=== PATIENT | female | born 1980 | race Caucasian/White ===

== ENCOUNTER 2017-11-18 21:26 | Emergency (ER) | payer OTHER ==
[~2017-11-18] VITALS: Ht 160 cm; Wt 84.8 kg
[2017-11-18 21:42] VITALS: BP 135/87
[2017-11-18 21:51] LABS: ABSOLUTE BASOPHIL COUNT 0 /CUMM (0.0-0.2); ABSOLUTE EOSINOPHIL COUNT 0.2 /CUMM (0.0-0.7); ABSOLUTE GRANULOCYTE CT 3.6 /CUMM (1.4-6.5); ABSOLUTE LYMPH COUNT 2.7 /CUMM (1.2-3.4); ABSOLUTE MONOCYTE COUNT 0.6 /CUMM (0.10-0.60); BASOPHIL % 0.6 % (0.0-2.0); EOSINOPHIL % 2.2 % (0-5); GRANULOCYTE % 50.7 % (42.2-75.2); MEAN CORPUSCULAR HGB 29.9 PG (27.0-31.0); MEAN CORPUSCULAR HGB CONC 34.2 G/DL (33.0-37.0); MEAN CORPUSCULAR VOLUME 87.3 FL (81.0-99.0); MEAN PLATELET VOLUME 7.1 FL (7.4-10.4); PLATELET COUNT 297 /CUMM (130-400); RBC DISTRIBUTION WIDTH 15.3 % (11.5-14.5); RED BLOOD CELL CT 4.01 /CUMM (4.20-5.40); WHITE BLOOD CELL COUNT 7.1 /CUMM (4.8-10.8)
--- NOTE | 2017-11-18 23:02 | RADIOLOGY REPORT ---
EXAMINATION: XR CHEST CLINICAL INFORMATION: Chest pain COMPARISON: CT 05/23/2009 TECHNIQUE: 2 views of the chest were obtained. FINDINGS: The lungs are well expanded. There is no focal consolidation, edema, or effusion. No pneumothorax. The cardiomediastinal silhouette is within normal limits. No acute osseous abnormality. IMPRESSION: No acute pulmonary findings.
--- NOTE | 2017-11-18 23:10 | ED GENERAL ADULT ---
History of Present Illness General Chief Complaint: Chest Pain Stated Complaint: CHEST PAIN,SHOULDER PAIN,JAW PAIN Source: patient Exam Limitations: no limitations Vital Signs & Intake/Output Vital Signs & Intake/Output Vital Signs Date Time Temp Pulse Resp B/P B/P Pulse O2 O2 Flow FiO2 Mean Ox Delivery Rate 11/18 2142 97.6 85 18 135/87 99 Room Air ED Intake and Output 11/19 0000 11/18 1200 Intake Total Output Total Balance Patient 187 lb Weight Allergies Coded Allergies: NO KNOWN ALLERGIES (09/24/12) Reconcile Medications No Known Home Medications Triage Note: 37F REPORTS SHE WAS AWOKEN AROUND 1AM WITH CHEST PAIN JUST BENEATH RIB CAGE THAT WRAPPED AROUND INTO HER BACK AND SHOULDER BLADE. TOOK TUMS W NO RELIEF. DENIES SOB OR DIAPHORESIS. TODAY PAIN HAS BEEN INTERMITTENT AND AT TIMES RADIATES INTO TRAP MUSCLE AND UP INTO RIGHT NECK JUST BEHIND JAW. + FRONTAL HEADACHE. -N/V. HAS MIRENA IN PLACE. UNKOWN FAMILY CARDIAC HX UNKOWN FAMILY CARDIAC HX Triage Nurses Notes Reviewed? yes Onset: Abrupt Duration: hour(s): Timing: constant : No Patient currently breastfeeds: No HPI: 37-year-old otherwise healthy female presenting with chest pain since 1 AM last night. Patient reports that she was awoken from sleep by sudden onset of substernal/epigastric pain that radiated across her right chest/right upper quadrant into her right shoulder blade and right jaw. States that she initially had a lot of belching with the pain. Pain has no worsening or alleviating factors, was not exertional, not pleuritic. Pain has gradually been self improving, but still endorses persistent pain that has not completely resolved. Denies fevers, shortness of breath, nausea, vomiting, leg swelling, palpitations. Patient has no personal prior cardiac history. Family cardiac history is unknown as she is adopted. (Erica Jaramillo) Past History Travel History Traveled to [place] past 21 day No Medical History Any Pertinent Medical History? none SPEED BELT SANDER/Reproductive: MIRENA Surgical History Surgical History: non-contributory Psychosocial History What is your primary language Ma[place] Tobacco Use: Never used Family History Hx Contributory? No (Erica Jaramillo) Review of Systems Review of Systems Constitutional: Reports: no symptoms. EENTM: Reports: no symptoms. Respiratory: Reports: no symptoms. Cardiovascular: Reports: see HPI. GI: Reports: see HPI. Genitourinary: Reports: no symptoms. Musculoskeletal: Reports: no symptoms. Skin: Reports: no symptoms. Neurological/Psychological: Reports: no symptoms. Hematologic/Endocrine: Reports: no symptoms. Immunologic/Allergic: Reports: no symptoms. All Other Systems: Reviewed and Negative (Erica Jaramillo) Physical Exam Physical Exam General Appearance: well developed/nourished, no apparent distress, alert, awake , comfortable Comments: Gen.: Well-nourished, well-developed, no acute distress. Head: Normocephalic, atraumatic. Eyes: Normal inspection bilaterally Ears: Normal inspection bilaterally Nose: Normal inspection Neck: Normal inspection Lungs: clear to auscultation bilaterally, normnal breath sounds, chest wall is nontender Heart: regular rate and rhythm Abdomen: soft and non-tender Extremities: Normal inspection, no edema Neurologic: alert and oriented x3, steady gait Skin: warm and dry Psychiatric: Normal mood and affect, no apparent delusions or hallucinations, behavior appropriate Core Measures ACS in differential dx? Yes CVA/TIA Diagnosis: No Sepsis Present: No Sepsis Focused Exam Completed? No (Erica Jaramillo) Progress Differential Diagnoses I considered the following diagnoses in my evaluation of the patient: [ACS versus angina versus PE versus biliary versus pancreatitis versus gastritis versus GERD versus peptic ulcer versus MSK strain, low concern for dissection versus Boerhaave's versus pericarditis versus pericardial effusion versus tamponade] Plan of Care: Orders Procedure Date/time Status TROPONIN LEVEL 11/18 2137 Complete MAGNESIUM 11/18 2137 Complete LIPASE 11/18 2137 Complete D-DIMER 11/18 2137 Complete COMPREHENSIVE METABOLIC PANEL 11/18 2137 Complete CBC WITHOUT DIFFERENTIAL 11/18 2137 Complete EKG 11/18 2126 Active Laboratory Tests 11/18/17 2140: Anion Gap 10, Estimated GFR > 60, BUN/Creatinine Ratio 31.4 H, Glucose 92, Calcium 9.8, Magnesium 1.7, Total Bilirubin 0.6, AST 20, ALT 26, Alkaline Phosphatase 71, Troponin I < 0.01, Total Protein 8.0, Albumin 4.8, Globulin 3.2, Albumin/Globulin Ratio 1.5, Lipase 106, D-Dimer High Sensitivty 228, CBC w Diff NO MAN DIFF REQ, RBC 4.01 L, MCV 87.3, MCH 29.9, MCHC 34.2, RDW 15.3 H, MPV 7.1 L, Gran % 50.7, Lymphocytes % 37.9, Monocytes % 8.6, Eosinophils % 2.2, Basophils % 0.6, Absolute Granulocytes 3.6, Absolute Lymphocytes 2.7, Absolute Monocytes 0.6, Absolute Eosinophils 0.2, Absolute Basophils 0 EKG shows normal sinus rhythm, troponin negative Labs unremarkable including negative d-dimer. and normal LFTs and lipase Chest x-ray unremarkable Patient reports that her pain is not relieved after Toradol No clear etiology for the patient's symptoms, but will concern for emergent pathology. Troponin not repeated as the patient's onset of symptoms were roughly 24 hours ago, and do not seem consistent with cardiac etiology. Patient was seen and evaluated by the ED attending and cleared for discharge. She will follow-up with her primary care provider for reevaluation and given strict return precautions. Initial ED EKG: normal sinus rhythm, no ST T wave changes (Erica Jaramillo) Departure Departure Disposition: HOME OR SELF CARE Condition: Stable Clinical Impression Primary Impression: Chest pain Referrals: Arcelia Dave DO (PCP/Family) Additional Instructions: Follow-up with your primary care provider for reevaluation. Return to the emergency department for any new or worsening symptoms. If you are still having pain tomorrow you may return to the emergency department for an ultrasound of your gallbladder. Departure Forms: Customer Survey General Discharge Information Prescriptions: Current Visit Scripts No Known Home Medications (Erica Jaarmillo) PA/STATION JAILER Co-Sign Statement Statement: ED Attending supervision documentation- [] I saw and evaluated the patient. I have also reviewed all the pertinent lab results and diagnostic results. I agree with the findings and the plan of care as documented in the PA's/STATION JAILER's documentation. [x] I have reviewed the ED Record and agree with the PA's/STATION JAILER's documentation. [] Additions or exceptions (if any) to the PAs/STATION JAILER's note and plan are summarized below: [] (Alcira BENEDICT,Mil Crook) Critical Care Note Critical Care Note Critical Care Time: non-applicable (Erica Jaramillo)
== END 2017-11-19 00:26 ==
LOC: ERH 21:26
PROVIDERS: Emergency Medicine
DX: R07.89 Other chest pain (principal)
CPT/HCPCS: 71046; 93005; 93010; 96372; J1885